=== PATIENT | male | born 1975 | race Caucasian/White ===

== ENCOUNTER 2017-11-15 09:05 | Emergency (ER) | payer BC ==
[~2017-11-15] VITALS: Ht 188 cm; Wt 85.0 kg
[~2017-11-15 09:05] MED LIST: NORCO 5/3251 TABLET PO; PEN-VEE K,VEET500 MG PO
[2017-11-15] MEDS ORDERED: PEN-VEE K,VEET500 MG PO (11:44)
[2017-11-15 12:01] VITALS: BP 138/97
== END 2017-11-15 12:02 | disposition home or self-care (01) ==
LOC: EME 09:05
DX: K02.9 Dental caries, unspecified (principal); F17.200 Nicotine dependence, unspecified, uncomplicated
CPT/HCPCS: 99281; 99283